=== PATIENT | male | born 1960 | race Caucasian/White ===

== ENCOUNTER 2018-08-28 08:09 | Outpatient (CLI) | payer OTHER ==
[2018-08-28 09:07] LABS: BASOPHILS % (AUTO) 0.5 %; EOSINOPHILS # (AUTO) 0.1 10^3/uL (0.0-0.7); EOSINOPHILS % (AUTO) 1.9 %; HGB - HEMOGLOBIN 15.1 g/dL (14.0-18.0); LYMPHOCYTES # (AUTO) 1.5 10^3/uL (1.5-3.5); MEAN CORPUSCULAR HEMOGLOBIN 30.9 pg (27.0-31.0); MEAN CORPUSCULAR VOLUME 88.4 fL (80.0-94.0); MEAN PLATELET VOLUME 6.9 fL (7.4-11.4); MONOCYTES # (AUTO) 0.7 10^3/uL (0.0-1.0); MONOCYTES % (AUTO) 9.8 %; NEUTROPHILS # (AUTO) 4.6 10^3/uL (1.5-6.6); NEUTROPHILS % (AUTO) 65.8 %; PLT - PLATELET COUNT 278 10^3/uL (130-450); RED BLOOD COUNT 4.88 10^6/uL (4.70-6.10); RED CELL DISTRIBUTION WIDTH 13.1 % (12.0-15.0); WHITE BLOOD COUNT 6.9 x10^3/uL (4.8-10.8)
[2018-08-28 09:57] LABS: ALBUMIN 4.3 g/dL (3.2-5.5); ALBUMIN/GLOBULIN RATIO 1.2 (1.0-2.2); BILIRUBIN,TOTAL 0.9 mg/dL (0.2-1.0); CALCIUM 9.4 mg/dL (8.5-10.3); CREATININE 1.1 mg/dL (0.6-1.2); TOTAL PROTEIN 7.8 g/dL (6.7-8.2)
== END 2018-08-28 08:10 | disposition home or self-care (01) ==
LOC: LAB 08:09
PROVIDERS: ATTEND Internal Medicine Gastroenterology
DX: Z80.0 Family history of malignant neoplasm of digestive organs (principal)
CPT/HCPCS: 36415; 80053; 85025

== ENCOUNTER 2018-08-28 08:27 | Outpatient (CLI) | payer OTHER | END 2018-08-28 08:28 | disposition home or self-care (01) | LOC: RT 08:27 | PROVIDERS: ATTEND Internal Medicine Gastroenterology | DX: Z80.0 Family history of malignant neoplasm of digestive organs (principal) | CPT/HCPCS: 36415; 80053; 85025; 93005 ==

== ENCOUNTER 2018-09-07 08:59 | Day surgery (SDC) | payer OTHER ==
[2018-09-07] MEDS ORDERED: LACTATED RINGERS 1,000 ML IV ONE (09:36)
[2018-09-07] MEDS ORDERED: MIDAZOLAM 2 MG/2 ML VIAL IVP ONE (10:17)
[2018-09-07] MEDS ORDERED: fentaNYL 250 MCG/5 ML VIAL IVP ONE (10:17)
[2018-09-07 11:08] VITALS: BP 128/76
== END 2018-09-07 09:00 | disposition home or self-care (01) ==
LOC: SDS 08:59
PROVIDERS: ATTEND Internal Medicine Gastroenterology
PROC: 0DBL8ZZ Excision of Transverse Colon, Via Natural or Artificial Opening Endoscopic (ICD-10-PCS; 2018-09-07)
PROC: 0DBN8ZZ Excision of Sigmoid Colon, Via Natural or Artificial Opening Endoscopic (ICD-10-PCS; 2018-09-07)
PROC: 0DBM8ZZ Excision of Descending Colon, Via Natural or Artificial Opening Endoscopic (ICD-10-PCS; principal; 2018-09-07 10:15)
DX: Z12.11 Encounter for screening for malignant neoplasm of colon (principal); D12.3 Benign neoplasm of transverse colon; K63.5 Polyp of colon; K57.30 Diverticulosis of large intestine without perforation or abscess without bleeding; Z86.010 Personal history of colon polyps; Z80.0 Family history of malignant neoplasm of digestive organs; I10 Essential (primary) hypertension; E66.9 Obesity, unspecified; Z72.0 Tobacco use; Z68.34 Body mass index [BMI] 34.0-34.9, adult
CPT/HCPCS: 45380; J7120

== ENCOUNTER 2022-03-10 15:07 | Outpatient (CLI) | payer OTHER ==
--- NOTE | 2022-03-11 10:20 | MRI Report ---
PROCEDURE: Knee RT W/O INDICATIONS: PAIN IN RIGHT KNEE TECHNIQUE: Noncontrast sagittal PD fast spin echo and T2 fast spin echo with fat saturation, sagittal 3-D gradie nt sequence with fat saturation; coronal T1 spin echo and PD fast spin echo with fat saturation, and axial PD fast spin echo with fat saturation through the knee. COMPARISON: None. FINDINGS: Image quality: Excellent. Menisci: There is intrasubstance degeneration in the posterior horn the medial meniscus. A small hori zontal tear is seen involving the undersurface of the peripheral aspect of the posterior horn of the medial meniscus (series 501, image 6). The lateral meniscus demonstrates normal morphology and project management intern al signal. The meniscal root ligaments appear intact. Cruciate ligaments: The anterior and posterior cruciate ligaments appear intact. There is mild T2 h yperintensity in the distal PCL and associated cystic changes in the posterior tibial plateau at the PCL attachment. Medial structures: The medial collateral ligament appears intact. The semimembranosus tendon insert ionsand meniscocapsular junction appear intact. Visualized portions of the pes anserinus tendons stuart ear normal. No abnormal bursal fluid. Lateral structures: The lateral collateral ligament, long and short heads of the biceps femoris tend on appear intact. The popliteus tendon appears normal. Iliotibial band appears normal. Anterior structures: There are ossicles (fragmentation) anterior to the tibial tubercle at the donnelly lar tendon patent, suggesting [place]i-Schlatter's disease. The quadriceps and patellar tendons appear intact. Patellar alignment is normal. No femoral trochlear dysplasia or ventral trochlear prominenc e. No edema in the infrapatellar fat pad. Bones and cartilage: No bone marrow contusions or fractures. Mild cartilage fibrillation with relati vely preserved cartilage thickness. Joint space: There is trace knee joint fluid. No Yuan's cyst. Normal appearing synovial plicae ar e incidentally noted. IMPRESSION: 1. A small horizontal tear involving the undersurface of the peripheral aspect of the posterior horn of the medial meniscus. 2. Segmentation of tibial tubercle at the patellar tendon attachment, suggesting [place]-Schlatter dis ease. 3. Mild hyperintense T2 signal of the distal PCL and associated cystic changes in the posterior tibia l plateau at the PCL attachment. The finding is likely related to prior PCL injury. No acute PCL tear . 4. Mild cartilage degeneration with relatively preserved cartilage thickness. Reviewed by: Garry Julien MD on 03/11/2022 10:18 AM PDT Approved by: Garry Julien MD on 03/11/2022 10:18 AM PDT Station ID: [id number]
== END 2022-03-10 15:08 | disposition home or self-care (01) ==
LOC: DI 15:07
PROVIDERS: ATTEND Nurse Practitioner Family
DX: S83.221A Peripheral tear of medial meniscus, current injury, right knee, initial encounter (principal); R93.6 Abnormal findings on diagnostic imaging of limbs; R93.89 Abnormal findings on diagnostic imaging of other specified body structures; M11.261 Other chondrocalcinosis, right knee

== ENCOUNTER 2022-03-16 10:17 | Outpatient (CLI) | payer OTHER ==
--- NOTE | 2022-03-16 14:11 | XRAY Report ---
PROCEDURE: Knee 1 View BILAT INDICATIONS: RIGHT KNEE PAIN TECHNIQUE: AP weightbearing views of the knees were acquired. COMPARISON: X-ray right knee, 3 views, 02/16/2022. FINDINGS: Bones: No fractures or dislocations. No suspicious bony lesions. Mild symmetrical joint space narro wing in the medial femorotibial compartments bilaterally. Soft tissues: No joint effusion. No suspicious soft tissue calcifications. IMPRESSION: Mild symmetrical joint space narrowing in the medial femorotibial compartments bilateral ly. Reviewed by: Garry Julien MD on 03/16/2022 1:09 PM [facility] Approved by: Garry Julien MD on 03/16/2022 1:09 PM [facility] Station ID: [id number]
== END 2022-03-16 23:59 | disposition home or self-care (01) ==
LOC: DI.WOS 10:17
PROVIDERS: ATTEND Orthopaedic Surgery
DX: M25.861 Other specified joint disorders, right knee (principal); M25.862 Other specified joint disorders, left knee